=== PATIENT | female | born 1955 | race Caucasian/White ===

== ENCOUNTER 2019-06-14 19:27 | Emergency (ER) | payer OTHER, MEDICAID ==
[~2019-06-14] VITALS: Ht 165.1 cm; Wt 81.6 kg
[2019-06-14 19:39] VITALS: Ht 165.1 cm; Wt 81.6 kg
[2019-06-14] MEDS ORDERED: NEURONTIN 300300 MG PO (19:41)
[2019-06-14] MEDS ORDERED: BENTYL 20 MG TA20 MG PO (19:42)
[2019-06-14] MEDS ORDERED: BUPROPION XL150 MG PO (19:42)
[2019-06-14] MEDS ORDERED: CELEXA40 MG PO (19:42)
[2019-06-14] MEDS ORDERED: PROTONIX40 MG PO (19:43)
[2019-06-14] MEDS ORDERED: AMITIZA24 MCG PO (19:43)
[2019-06-14] MEDS ORDERED: BUSPAR10 MG PO (19:43)
[2019-06-14] MEDS ORDERED: LOVASTATIN40 MG PO (19:43)
[2019-06-14] MEDS ORDERED: ATARAX 25 MG TA25 MG PO (19:44)
[2019-06-14] MEDS ORDERED: HCTZ25 MG PO (19:44)
[2019-06-14] MEDS ORDERED: TRAZODONE HCL150 MG PO (19:44)
[2019-06-14 20:41] LABS: APPEARANCE CLEAR (CLEAR); BILIRUBIN NEGATIVE (NEGATIVE); COLOR YELLOW (YELLOW); GLUCOSE NEGATIVE (NEGATIVE); KETONE NEGATIVE (NEGATIVE); NITRITE NEGATIVE (NEGATIVE); PROTEIN TRACE mg/dL (NEGATIVE); UROBILINOGEN NORMAL (NORMAL)
[2019-06-14 20:42] LABS: BACTERIA FEW /hpf (NEGATIVE); EPITHELIAL CELLS OCC /hpf (0-5); RED CELLS - URINE 0-5 /hpf (0-5); WHITE CELLS - URINE 0-5 /hpf (NEGATIVE)
[2019-06-14 20:47] LABS: BASOPHILS 0.5 % (0-2); EOSINOPHILS 2.7 % (0-7); HEMOGLOBIN 11.3 g/dL (12-16); IMMATURE GRANULOCYTES 0.2 % (0-5); LYMPHOCYTES 32.6 % (15-50); MCH 29.7 pg (26.0-34.0); MCHC 32.3 g/dL (31.0-37.0); MCV 92.1 fL (80.0-100.0); MEAN PLATELET VOLUME 8.9 fL (7.4-10.4); PLATELET COUNT 346 10x3/uL (130-400); WBC 9.5 10x3/uL (4.8-10.8)
[2019-06-14 21:21] LABS: CALC OSMOLALITY 278 mosm/kg (275-300); CALCIUM 8.6 mg/dL (8.5-10.1); CARBON DIOXIDE 28.3 mmol/L (21.0-32.0); CHLORIDE - SERUM 104 mmol/L (98-107); GLUCOSE 135 mg/dL (74-106); POTASSIUM - SERUM 3.3 mmol/L (3.5-5.1); SODIUM 138 mmol/L (136-145); UREA NITROGEN 16 mg/dL (7-18); eGFR NON AFRICAN AMERICAN 59 mL/min (90-120)
[2019-06-14 21:31] LABS: ALBUMIN 3.5 g/dL (3.4-5.0); ALKALINE PHOSPHATASE 123 U/L (46-116); ALT (SGPT) 27 U/L (10-68); AMYLASE - SERUM 59 U/L (25-115); BILIRUBIN - TOTAL 0.18 mg/dL (0.2-1.3); LIPASE 210 U/L (73-393); PROTEIN - SERUM 7.6 g/dL (6.4-8.2)
[2019-06-14 21:33] LABS: TROPONIN-I < 0.017 ng/mL (0.000-0.060)
[2019-06-14 21:48] VITALS: BP 112/56
== END 2019-06-14 21:48 | disposition home or self-care (01) ==
LOC: D.ER 19:27
PROVIDERS: Family Medicine
DX: R11.2 Nausea with vomiting, unspecified (principal); R19.7 Diarrhea, unspecified; F17.200 Nicotine dependence, unspecified, uncomplicated